=== PATIENT | female | born 1970 | race Caucasian/White ===

== ENCOUNTER 2018-01-13 18:25 | Emergency (ER) | payer OTHER, MEDICAID ==
[~2018-01-13] VITALS: Ht 157.5 cm; Wt 59.0 kg
[~2018-01-13 18:25] MED LIST: ACETAMINOPHEN-1 EAC1 PO; ELIMITE60 GM TP; HYDROXYZINE HCL25 M1 PO; PREDNISONE 10 M10 M1 PO; SEROQUEL 50 MG50 MG PO; VENLAFAXINE HCL75 MG PO; VISTARIL 25 MG25 M1 PO
[2018-01-13 19:42] LABS: INFLUENZA A ANTIGEN None Detected (None Detect); INFLUENZA B ANTIGEN None Detected (None Detect)
[2018-01-13] MEDS ORDERED: ZPAK PO (20:01)
[2018-01-13] MEDS ORDERED: TESSALON PERLE100 MG PO (20:01)
[2018-01-13 20:21] VITALS: BP 127/78
== END 2018-01-13 20:23 | disposition home or self-care (01) ==
LOC: M.ERS 18:25
PROVIDERS: Physician Assistant
DX: J11.1 Influenza due to unidentified influenza virus with other respiratory manifestations (principal); J20.9 Acute bronchitis, unspecified; F10.20 Alcohol dependence, uncomplicated